=== PATIENT | female | born 1980 | race Caucasian/White ===

== ENCOUNTER 2021-03-07 15:24 | Emergency (ER) | payer OTHER ==
[2021-03-07] MEDS ORDERED: Sodium Chloride 0.9% 10 ML Syringe FLUSH PRN (16:07)
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
--- NOTE | 2021-03-07 17:17 | US ---
First trimester obstetrical ultrasound: Multiple real-time images were obtained transvaginally. Comparison: No previous obstetrical imaging is available. Dates: Working IRA: 11/02/21, gestational age 5 weeks 5 days Current ultrasound: IRA 11/02/21, gestational age 5 weeks 5 days Single intrauterine gestation is seen. Small yolk sac and pole are seen. No subchorionic hemorrhage is seen. Corpus luteum cyst is seen within the right ovary measuring 2.7 cm. Simple cyst is noted within the left ovary measuring 3.8 cm. Measurements: Navarino-rump length: 0.21 cm - 5 weeks 5 days Heart rate: 104 bpm Impression: 1. Single intrauterine gestation. Dates as noted above. 2. Findings within both maternal ovaries as noted above. 3. No acute abnormality is otherwise appreciated. Diagnostic code #2
== END 2021-03-07 18:29 | disposition home or self-care (01) ==
LOC: JD.ED 15:24
DX: O9A.23 Injury, poisoning and certain other consequences of external causes complicating the puerperium (principal); O99.891 Other specified diseases and conditions complicating pregnancy; S60.212A Contusion of left wrist, initial encounter; S60.211A Contusion of right wrist, initial encounter; R10.9 Unspecified abdominal pain; Z3A.01 Less than 8 weeks gestation of pregnancy; V40.5XXA Car driver injured in collision with pedestrian or animal in traffic accident, initial encounter; Y92.410 Unspecified street and highway as the place of occurrence of the external cause
CPT/HCPCS: 36415; 76817; 76817-26; 84702; 85025; 86900; 86901; 99284-25